=== PATIENT | male | born 1945 ===

== ENCOUNTER 2019-02-12 08:21 | Outpatient (CLI) | payer OTHER | END 2019-02-12 08:29 | disposition home or self-care (01) | LOC: SONOGRAMA 08:21 | DX: D21.0 Benign neoplasm of connective and other soft tissue of head, face and neck (principal) ==

== ENCOUNTER 2020-12-08 09:45 | Outpatient (CLI) | payer OTHER | END 2020-12-08 09:50 | disposition home or self-care (01) | LOC: SONOGRAMA 09:45 | PROVIDERS: ATTEND Pathology Anatomic Pathology & Clinical Pathology | DX: E04.1 Nontoxic single thyroid nodule (principal) ==